=== PATIENT | female | born 2000 | race Two or more races ===

== ENCOUNTER 2024-09-15 00:26 | Emergency (ER) | payer MEDICAID, SELFPAY ==
[2024-09-15] VITALS (13 sets, daily range): BP systolic 80–126; BP diastolic 50–90; PULSE 82–125; RESP 16–20; TEMP 36.7–36.9; O2SAT 95–100
[2024-09-15 01:03] LABS: Collection Type, Urine Catheter
[2024-09-15 01:22] LABS: Amorphous Crystals,Urine Present (Absent); Bacteria,Urine 1+; Bilirubin,Urine Negative (Negative); Blood,Urine 2+ (Negative); Clarity,Urine Clear (Clear/Hazy); Color,Urine Lt-Yellow (Lt Yel-Yel); Glucose, Urine Negative (Negative); Ketones,Urine Negative (Negative); Leukocyte Esterase,Urine Positive (Negative); Nitrite,Urine Negative (Negative); Protein,Urine Negative (Neg - Trace); RBC,Urine 15 /hpf (0-3); Specific Gravity,Urine 1.006 (1.001-1.035); Squamous Epithelial Cell,Urine 1 /hpf (0-5); Urobilinogen,Urine Negative mg/dL (0.0-1.0); WBC,Urine 42 /hpf (0-5)
[2024-09-15 01:30] LABS: Amphetamine/Methamp Scrn,U Negative (Negative); Barbiturate Screen,Urine Negative (Negative); Benzodiazepines Screen,Urine Negative (Negative); Benzoylecgonine Screen, Ur Negative (Negative); Fentanyl Screen,Urine Negative (Negative); Opiate Screen,Urine Negative (Negative); THC Screen,Urine Negative (Negative)
--- NOTE | 2024-09-15 01:32 | PD.EDALCOH ---
ED Alcohol RME/HPI General Chief Complaint: Alcohol Stated Complaint: ETOH Time Seen by Provider: 09/15/24 01:32 Arrival date/time: 09/15/24 00:26 Mode of arrival: EMS Limitations: no limitations and altered mental status RME / HPI RME / HPI narrative: DR. VIDALES?S MAIN ED EVALUATION: 24-year-old female with history of recreational drug use presenting to the emergency department via EMS who is presenting for chief complaint of alcohol intoxication and combativeness x [employer]. Per , patient does not regularly drink. Patient became irate and combative with him in their car. Per sister, patient had her children removed from her custody due to drug abuse. At arrival, patient was screaming and moving around, still combative, and was placed in 4-point restraints. No medical complaints. - PMH:?Denies - PSH: Recreational drug use, Alcohol use - Social history: Denies - Current medications: Reviewed PCP is Quoc Jain MD MD complaint: alcohol intoxication Last drink: Just Prior to Arrival Chronic alcohol use: No Previous visits for alcohol intoxication: No Recent trauma: No Associated symptoms: denies other symptoms Related Data Previous Rx's ?Medication ?Instructions ?Recorded amoxicillin 875 mg-potassium 1 tab PO Q12H #10 tabs 09/17/22 clavulanate 125 mg tablet hydrocodone 5 mg-acetaminophen 325 1 tab PO Q6H PRN pain #20 tabs 09/17/22 mg tablet ibuprofen 600 mg tablet 600 mg PO Q6H PRN pain #30 tabs 09/17/22 amoxicillin 875 mg-potassium 1 tab PO BID #20 tabs 09/19/22 clavulanate 125 mg tablet metronidazole 500 mg tablet 500 mg PO BID #14 tabs 04/14/23 Allergies Allergy/AdvReac Type Severity Reaction Status Date / Time No Known Allergies Allergy Verified 04/14/23 16:28 Review of Systems Review of Systems ROS Unobtainable: other (Patient asleep) Past Medical History Surgical History SURGICAL: Positive Section Social History SMOKING STATUS: Never smoker ALCOHOL LAST INTAKE: Just Prior to Arrival ED Exam General Limitations: Present no limitations and altered mental status General appearance: Present appears intoxicated Head Head exam: Present atraumatic Eye Eye exam: Present normal appearance and EOMI; Absent miosis or periorbital tenderness ENT ENT exam: Present normal exam, normal oropharynx and mucous membranes dry Neck Neck exam: Present normal inspection, full ROM and trachea midline Chest Chest inspection: Present normal inspection Respiratory Respiratory exam: Present normal lung sounds bilaterally; Absent wheezes, stridor or accessory muscle use Cardiovascular Cardiovascular exam: Present regular rate and normal heart sounds Abdominal Exam Abdominal exam: Present soft and normal bowel sounds; Absent distention Extremities Exam Extremities exam: Present normal inspection and full ROM Back Exam Back exam: Present normal inspection and full ROM Neurological Exam Neurological exam: Present other (Patient was moving all extremities and moving all extremities and kicking and combative with the nurses.) Psychiatric Psychiatric exam: Present agitated Skin Skin exam: Present dry; Absent rash, cyanosis, diaphoresis or erythema Course Course Course Narrative: Patient initially placed in restraints on arrival. 0115 patient restraints were removed. Drug screen is negative. Quality Measures none Orders Category Date Time Status Alcohol, Blood Medical Stat Lab 09/15/24 01:15 Completed CBC Stat Lab 09/15/24 01:15 Completed CMP [Comprehensive Metabolic Panel] Stat Lab 09/15/24 01:15 Completed Drug Screen,Urine Stat Lab 09/15/24 00:58 Completed HCG,Qualitative Serum Stat Lab 09/15/24 01:15 Completed UA [Urinalysis] Stat Lab 09/15/24 00:58 Completed Sodium Chloride 0.9% 1000 ml [Ns] 1,000 ml Med 09/15/24 01:49 Discontinued IV 999 mls/hr Sodium Chloride 0.9% 1000 ml [Ns] 1,000 ml Med 09/15/24 04:52 Discontinued IV 999 mls/hr Vital Signs Vital signs: Vital Signs Temperature 98.4 F 09/15/24 00:30 Pulse Rate 125 H 09/15/24 00:30 Respiratory Rate 20 09/15/24 00:30 Blood Pressure 120/90 H 09/15/24 00:30 Pulse Oximetry (%) 95 09/15/24 00:30 Oxygen Delivery Method Room Air 09/15/24 00:30 Discharge Plan Plan Patient Disposition: HOME (Self Care) Prescriptions/Referrals Prescriptions/Med Rec: No Action amoxicillin-pot clavulanate 875-125 mg tablet 1 tab PO Q12H Qty: 10 0RF hydrocodone-acetaminophen 5-325 mg tablet 1 tab PO Q6H MDD 4 PRN (Reason: pain) Qty: 20 0RF ibuprofen 600 mg tablet 600 mg PO Q6H PRN (Reason: pain) Qty: 30 0RF amoxicillin-pot clavulanate 875-125 mg tablet 1 tab PO BID Qty: 20 0RF metronidazole 500 mg tablet 500 mg PO BID Qty: 14 0RF Referrals: Quoc Jain MD [Primary Care Provider] - In 1 week Problem List Clinical Impression: Alcohol intoxication Patient/Caregiver Discharge Instructions Education Materials: ED Alcohol Intoxication Additional Instructions: DISCHARGE INSTRUCTIONS - ADULTS Even though you have been discharged from the Emergency Department, there are several things that you should do to ensure that you receive proper care: 1. DO READ your discharge instructions as these contain important information concerning your medical care. 2. If medication has been prescribed for your condition, fill the prescription as soon as possible and follow the directions on the medication. 3. RETURN AT ONCE TO THE EMERGENCY DEPARTMENT if you have any problems or concerns. These include but are not limited to fever, worsening pain(belly, chest, head, etc?), worsening shortness of breath, uncontrollable bleeding, inability to tolerate food and water, or any condition that makes you question your well-being. Also, if your symptoms do not improve in the next 12-24 hours, return to the ER or seek medical care immediately. 4. Be sure to follow up with your regular physician or specialist as instructed at discharge as this is the best way to ensure that you receive the very best of care. If you do not have a primary care physician, please contact a physician group and make an appointment. 5. Please visit [facility] for coupons regarding your prescriptions. It is a free service for you to use and can help reduce the cost of your medication. We would like to thank you for coming today and our hope is that we served you and your family well during your stay. General Adult Discharge Instructions(Bolivian) ted dick sido dado de adrian del [facility] sin embargo hay algunas cosas que debe hacer para asegurarse de que usted continue recibiendo el cuidado adecuado. Por favor camille las siguientes instrucciones con atenci?n: ? 1. Si es que le dieron alguna prescripci?n (medicamento), asegurese de ir a la farmacia de carbajal preferencia, llenar el medicamento y tomarlo conforme a las instrucciones. ? 2. Leas las instrucciones de adrian con mucho cuidado dado que contienen informaci?n importante para carbajal eric y cuidado. 3. REGRESE AL DEPARTAMENTO DE EMERGENCIA SI tiene alg?n tipo de problema o preocupaci?n. [place] incluye kelvin no esta limitado a fiebre, mucho dolor abdominal, dolor de pecho, mucho dolor de omero, falta de aire, sangrado incontrolable, nauseas o vomitos incontrolables, inhabilidad de tolerar alimentos, o cualquier otro tipo de condici?n que le piotr cuestionar carbajal eric. 4. Asegurese de seguir con carbajal medico primario (tambien llamado medico de tisha) o con el medico especialista que le indicaron al momento del adrian en 3 a 5 sevilla dado que esta es la mejor manera de asegurar que aaron recibiendo el mejor cuidado medico. ? 5. Si es que tiene un telefono inteligente (smartphone) revise la pagina web o aplicaci?n GoodRx antes de pagar por david prescripciones (medicinas) dado que asi podr?a encontrar un cup?n para que david medicinas [place] menos costosas. El servicio es gratuito. ? Le agradecemos carbajal visita el jama de hoy y esperamos que carbajal eric mejore. Print Language: Bolivian Stand Alone Forms: [facility] Award Info., Patient Portal Info Letter Alcohol MDM Narrative MDM Narrative: Scribe Attestation: 09/15/2024 - I, Roopa Hairston am scribing for and in the presence of Dr. Vidales. Provider Notation: Although this document has been carefully reviewed, there may still be some phonetic and other typographical errors.? These errors are purely grammatical due to imperfections in the software program and should not be construed in any way to compromise the substance of the patient's medical care during this visit. 24-year-old female with history of recreational drug use presenting to the emergency department via EMS who is presenting for chief complaint of alcohol intoxication and combativeness x [employer]. ROS: alcohol intoxication Differential diagnosis includes alcohol intoxication, drug use, dehydration, doubt bleed since the patient had no trauma and route to the hospital. This was witnessed by the family. They were at a and on the way back she started becoming hysterical and crying. The family suspects this could be from alcohol use all day at the . Plan will be to reassess, check alcohol. 0600: Patient is still clinically intoxicated. Patient data External records reviewed:: [facility] previous records (Reviewed prior ED records from 04/14/23. Patient was seen for Bacterial vaginosis.) and EMS form Clinical information provided by:: EMS, family (Sister: Patient had her children removed from her custody due to drug abuse.) and spouse (: Patient became irate and combative with him in their car.) Social determinants that could affect healthcare access:: substance use Patient has the following chronic illnesses:: None reported How is presenting disease/condition affected by chronic disease/condition?: no chronic disease Evaluation data The following diagnostics were reviewed and interpreted by me:: lab results Lab and/or radiology exams considered but not ordered:: None Interpretation Summary: LABS WBC 12.9, MCV 76, Neut # 10.2, Immature Gran # 0.03. Sodium 148, Potassium 3.0, Chloride 110, Anion Gap 17, Crrected Calcium 8.4. Urine blood 2+, Urine RBC 15, Urine WBC 42, Amorphous Crystals Present, Urine bacteria 1+. Ethyl Alcohol 217.5. Medications / Prescriptions Medications or Prescriptions considered but not ordered:: None Medication administrations:: Medication Administration History Discontinued Medications Sodium Chloride (Ns) 1,000 mls @ 999 mls/hr IV .Q1H1M ONE Stop: 09/15/24 02:49 Last Infusion: 09/15/24 03:10 Dose: Infused Documented By: Admin: 09/15/24 01:54 Dose: 999 mls/hr Documented By: QUINN Sodium Chloride (Ns) 1,000 mls @ 999 mls/hr IV .Q1H1M ONE Stop: 09/15/24 05:52 See above if any Consultations Consultation(s) initiated? (list below): No Diagnosis Differential diagnosis alcohol: alcohol intoxication and other (drug use, dehydration, bleed) Most likely diagnosis given after review of the tests above:: Alcohol intoxication Admission Indicated Admission indicated?: not indicated Explain why admission is indicated or not indicated:: Does not meet admission criteria Admission Request Was there a request for admission?: No Disposition Plan Disposition Plan: Discharge Discharge Attestation Discharge Attestation: The patient and all family members were given an opportunity to ask questions and understood the discharge instructions. Discharge instructions specifically effects, indications for sooner follow up or return to the emergency department, and the expected course of current diagnosis. Patient condition: Stable
[2024-09-15 01:44] LABS: Basophils # (Auto) 0.1 Thou/mm3 (0.0-0.2); Basophils % (Auto) 0 % (0-2.5); Eosinophils % (Auto) 0 % (0-10); Hemoglobin 13.4 g/dL (12.0-16.0); Immature Granulocytes % (Auto) 0 % (0-0); Immature Granulocytes Auto 0.03 Thou/mm3 (0.00-0.00); Lymphocytes # (Auto) 1.9 Thou/mm3 (1.0-4.8); Lymphocytes % (Auto) 15 % (10-50); Mean Corpuscular HGB Conc 34.4 g/dl (31.0-37.0); Mean Corpuscular Volume 76 fL (80-100); Monocytes # (Auto) 0.7 Thou/mm3 (0.0-0.8); Monocytes % (Auto) 6 % (0-12); Neutrophils # (Auto) 10.2 Thou/mm3 (1.8-7.7); Neutrophils % (Auto) 79 % (37-80); Nucleated Red Blood Cell % 0 /100 WBC (0); Platelet Count 313 Thou/mm3 (140-440); RDW Standard Deviation 44.1 fL (36.4-46.3); Red Blood Count 5.16 Miln/mm3 (4.00-5.20); White Blood Count 12.9 Thou/mm3 (3.6-11.0)
[2024-09-15] MEDS: SODIUM CHLORIDE 0.9% 1000 ML 1,000 ML 999 ML IV ×2 (01:54→06:00)
[2024-09-15 02:08] LABS: Alanine Aminotransferase 22 U/L (10-49); Albumin, Serum 4.7 gm/dL (3.5-5.0); Albumin/Globulin Ratio 1.7 (1.2-2.2); Alcohol, Blood Medical 217.5 mg/dL (0-10.0); Alkaline Phosphatase 105 U/L (46-116); Anion Gap 17 (7-16); Aspartate Amino Transferase 27 U/L (0-34); BUN/Creatinine Ratio 17 Ratio (12-20); Bilirubin,Total 0.7 mg/dL (0.3-1.2); Blood Urea Nitrogen 10 mg/dL (9-23); Calcium 8.4 mg/dL (8.3-10.6); Calcium (Corrected) 8.4 mg/dL (8.5-10.1); Carbon Dioxide 20.8 mMol/L (20.0-31.0); Chloride 110 mMol/L (98-107); Creatinine (Component) 0.6 mg/dL (0.6-1.3); Globulin 2.8 gm/dL (2.3-3.5); Glucose 101 mg/dL (74-106); Osmolality,Calculated 293 (275-295); Sodium 148 mMol/L (136-145); Total Protein 7.5 gm/dL (5.7-8.2); eGFR > 60 See Note
[2024-09-15 02:26] LABS: HCG,Qualitative Serum Negative
--- NOTE | 2024-09-15 06:16 | PC.NURSE ---
pt has been asleep most of the night. pts at bedside
--- NOTE | 2024-09-15 06:26 | PD.EDADDENDU ---
Emergency Room Addendum Addendum Narrative: 0600: Care assumed from Dr. Weaver, the previous shift emergency physician. Past medical, surgical, social and family history reviewed. Vitals and home medications reviewed. I will assume the care of the patient at this time. Please refer to the emergency department record for history and examination from initial visit.? Physical exam by me shows patient under no acute distress at this time. 0759: Patient remains clinically stable throughout the emergency department visit. Re-assessment at the time of disposition demonstrates that the patient is in no acute distress. We reviewed all the results, analysis, and treatment plans. Patient is amenable to discharge. Strict return precautions were outlined. Patient was discharged in stable condition. Diagnosis: -Alcohol intoxication
--- NOTE | 2024-09-15 07:30 | PC.NURSE ---
PT CALM AT THIS TIME, AT BEDSIDE, PT NOT IN ANY DISTRESS NOR C/O ANY PAIN. PT IS A GCS15 A&OX4.
== END 2024-09-15 08:09 | disposition home or self-care (01) ==
PROVIDERS: Emergency Provider Emergency Medicine; PCP Family Medicine
DX: F10.129 Alcohol abuse with intoxication, unspecified (principal); Y90.9 Presence of alcohol in blood, level not specified
CPT/HCPCS: 36415; 80053; 80307; 80320; 81001; 84703; 85025; 96360; 96361; 99284; J7030; G0480